=== PATIENT | female | born 1960 | race Caucasian/White ===

== ENCOUNTER 2017-05-01 20:17 | Inpatient (IN) | payer MEDICARE, OTHER ==
[~2017-05-01] VITALS: Ht 165.1 cm; Wt 73.6 kg
[~2017-05-01 20:17] MED LIST: CARI350T PO; CLON1TAB4 PO; ESTR1TAB17 PO; FEXO180T94 PO; LAMO100T PO; MORP30TA59 PO; PROG100C3 PO
[2017-05-01] MEDS ORDERED: ONDANSETRON HCL/PF 4 MG/2 ML VIAL IVP ONE (20:30)
[2017-05-01] MEDS ORDERED: PROPOFOL 20 ML IV ONE (20:30)
[2017-05-01] MEDS ORDERED: KETAMINE HCL (500MG/10ML) 50 MG/ML VIAL ONE (20:30)
[2017-05-01] MEDS ORDERED: PROPOFOL 200 MG/20 ML VIAL IV ONE ×2 (20:30→22:00)
[2017-05-01] MEDS ORDERED: KETAMINE HCL (500MG/10ML) 50 MG/ML VIAL IV ONE ×2 (20:30→22:00)
[2017-05-01] MEDS ORDERED: HYDROMORPHONE INJ 2 MG/ML DISP.SYRIN IV ONE (20:30)
[2017-05-01] MEDS ORDERED: IV NS 0.9% 500 ML BAG IV ONE ×2 (20:30→22:00)
[2017-05-01] MEDS ORDERED: ONDANSETRON HCL/PF 4 MG/2 ML VIAL ONE ×2 (20:30→21:31)
--- NOTE | 2017-05-01 20:30 | NUR ---
PT BIBRA FOR LEFT HIP PAIN. PT DENIES TRAUMA. "I BENT OVER AND IT POPPED OUT OF PLACE" PT AOX4 RR EVEN AND UNLABORED. NO SOB NOTED. NAD NOTED. NO NVD AT THIS TIME. PT GOWNED AND PLACED ON MONTIOR. PER RA STARTED IV ON RIGHT HAND 20G, PER RA GAVE MORPHINE 12 MG IVP.
[2017-05-01] MEDS ORDERED: HYDROMORPHONE 1 MG/1 ML DISP.SYRIN ONE ×3 (20:31→22:00)
--- NOTE | 2017-05-01 20:43 | NUR ---
XRAY AT BEDSIDE
--- NOTE | 2017-05-01 20:56 | NUR ---
DR. MUIR AND RT AT BEDSIDE FOR PROCEDURAL SEDATION FOR CLOSED REDUCTION OF LEFT HIP DISLOCATION.
--- NOTE | 2017-05-01 21:00 | NUR ---
VERBAL ORDERS PER DR. MUIR TO GIVE PROPOFO 20MG IVP. PT MEDICATED
--- NOTE | 2017-05-01 21:01 | NUR ---
VERBAL ORDERS PER DR. MUIR TO GIVE KETAMINE 20MG IVP. PT MEDICATED
--- NOTE | 2017-05-01 21:05 | NUR ---
VERBAL ORDERS PER DR. MUIR TO GIVE PROPOFO 20MG IVP. PT MEDICATED
--- NOTE | 2017-05-01 21:09 | NUR ---
VERBAL ORDERS PER DR. MUIR TO GIVE PROPOFO 20MG IVP. PT MEDICATED
--- NOTE | 2017-05-01 21:11 | NUR ---
Justine thomas in ED - 05/01/17 at 2202 by ISABELLA VERBAL ORDERS PER DR. MUIR TO GIVE PROPOFO 20MG IVP. PT MEDICATED
--- NOTE | 2017-05-01 21:11 | NUR ---
VERBAL ORDERS PER DR. MUIR TO GIVE KETAMINE 20MG IVP. PT MEDICATED
--- NOTE | 2017-05-01 21:12 | NUR ---
VERBAL ORDERS PER DR. MUIR TO GIVE PROPOFO 20MG IVP. PT MEDICATED
--- NOTE | 2017-05-01 21:15 | NUR ---
PER DR. MUIR UNABLE TO DO CLOSED REDUCTION OF LEFT HIP DISLOCATION
--- NOTE | 2017-05-01 21:19 | NUR ---
DR. PIEDRA SPEAKING TO DR. MUIR REGARDING ADMISSION
--- NOTE | 2017-05-01 21:24 | NUR ---
RT RT on stand by at bedside for conscious sedation.
[2017-05-01] MEDS ORDERED: HYDROMORPHONE 1 MG/1 ML DISP.SYRIN IV ONE ×2 (21:30→22:30)
[2017-05-01] MEDS ORDERED: ONDANSETRON HCL/PF 4 MG/2 ML VIAL IV ONE (21:30)
--- NOTE | 2017-05-01 21:30 | NUR ---
CALLED DR SKINNER'S LINE. 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 REFERRED TO PANEL.
--- NOTE | 2017-05-01 21:38 | NUR ---
DR. MUIR SPEAKING TO PT REGRADING POC
--- NOTE | 2017-05-01 21:46 | NUR ---
TERRANCE LOUIS AT BEDSIDE FOR EVAL.
--- NOTE | 2017-05-01 21:49 | NUR ---
URINE COLLECTED. CALLED LAB FOR WEBSITE ADMIN.
--- NOTE | 2017-05-01 21:49 | NUR ---
LAB AT BEDSIDE FOR BLOOD DRAW.
[2017-05-01 21:58] LABS: EOSINOPHILS # (AUTO) 0.1 /CMM (0.0-0.7); EOSINOPHILS % (AUTO) 1.4 % (0.0-6.0); HEMATOCRIT 28 % (33-45); HEMOGLOBIN 8.7 g/dL (11.5-14.8); LYMPHOCYTES # (AUTO) 0.7 /CMM (0.8-4.8); LYMPHOCYTES % (AUTO) 6.6 % (20.0-44.0); MEAN CORPUSCULAR HEMOGLOBIN 20 PG (26.0-33.0); MEAN CORPUSCULAR HGB CONC 31 g/dl (31.0-36.0); MEAN CORPUSCULAR VOLUME 62 fL (82-100); MONOCYTES # (AUTO) 0.3 /CMM (0.1-1.30); MONOCYTES % (AUTO) 2.9 % (2.0-12.0); NEUTROPHILS # (AUTO) 9.3 /CMM (1.8-8.9); NEUTROPHILS % (AUTO) 89.1 % (43.0-81.0); PLATELET COUNT (AUTO) 264 /CMM (150-450); RDW COEFFICIENT OF VARIATION 18.2 (11.5-15.0); RED BLOOD CELL COUNT(AUTO) 4.48 MIL/uL (4.0-5.2); WHITE BLOOD COUNT (AUTO) 10.4 K/uL (4.3-11.0)
--- NOTE | 2017-05-01 22:03 | NUR ---
VERBAL ORDERS PER DR. MUIR TO GIVE DILAUDID 1MG IVP. PT MEDICATED ORDERED.
--- NOTE | 2017-05-01 22:04 | NUR ---
DILAUDID 1MG GIVEN ON THE RHAND G20 PER DR MUIR'S VERBAL ORDER FOR PAIN ON THE LEFT HIP.
[2017-05-01 22:10] LABS: CREATININE 0.6 mg/dL (0.6-1.3); POTASSIUM 3.4 mmol/L (3.5-5.1)
--- NOTE | 2017-05-01 22:10 | NUR ---
PT ASSIGNED TO LA BED 317-2
[2017-05-01 22:15] LABS: CALCIUM, SERUM 7.9 mg/dL (8.5-10.1)
--- NOTE | 2017-05-01 22:16 | NUR ---
REPORT GIVEN TO HAYDEN MOMIN FOR DIANE/ BED 317-2
[2017-05-01 22:18] LABS: INR 0.9 (0.87-1.13); PROTHROMBIN TIME 9.6 SECS (9.5-12.7)
[2017-05-01] MEDS ORDERED: MAG HYDROX/AL HYDROX/SIMETH 30 ML UDC PO PRN (22:30)
[2017-05-01] MEDS ORDERED: ACETAMINOPHEN 325 MG TABLET PO PRN (22:30)
[2017-05-01] MEDS ORDERED: ONDANSETRON HCL/PF 4 MG/2 ML VIAL IVP PRN (22:30)
[2017-05-01] MEDS ORDERED: ZOLPIDEM TARTRATE 5 MG TABLET PO PRN (22:30)
[2017-05-01] MEDS ORDERED: Z GUARD REMEDY 2 OZ OINT TP PRN (22:30)
[2017-05-01] MEDS ORDERED: MAGNESIUM HYDROXIDE 30 ML UDC PO PRN (22:30)
[2017-05-01] MEDS ORDERED: IV NS 0.9% 1,000 ML IV PRN (22:30)
--- NOTE | 2017-05-01 22:33 | NUR ---
REMAINING PROPOFOL AND KETAMINE WASTED VIA PYXIS WITH RN AVIVA
[2017-05-01 22:40] VITALS: BP 121/68
--- NOTE | 2017-05-01 22:49 | NUR ---
PT TRASNFERED VIA GURNEY TO MS BED 317-2
[2017-05-01 22:50] VITALS: BP 121/68
--- NOTE | 2017-05-01 22:50 | NUR ---
RN NOTES RECEIVED PT FROM ER. PT IS AWAKE, A/OX 4. VERBALLY RESPONSIVE. ABLE TO MAKE NEEDS KNOWN. SON ART BEDSIDE. NO SOB OR DISTRESS NOTED. IV SITE ON RIGHT HAND LEAKING AT THIS TIME. INSERTED IV 20G ON LFA , WITH GOOD VENOUS RETURN. NO S/S OF INFILTRATION NOTED. F/C INSERTED, INTACT AND PATENT, DRAINING WITH CLEAR YELLOW URINE, NO HEMATURIA NOTED. AFEBRILE. BODY CHECK DONE. SKIN IS INTACT. ALL NEEDS ATTENDED AND MET. KEPT COMFORTABLE. PT ON NPO AFTER MIDNIGHT. SAFETY PRECAUTIONS OBSERVED. CALL LIGHT WITHIN REACH. WILL CONTINUE TO MONITOR.
[2017-05-01 23:12] LABS: EOSINOPHILS % (MANUAL) 1 % (0-4); LYMPHOCYTES % (MANUAL) 9 % (16-48); MONOCYTES % (MANUAL) 4 % (0-11.0); NEUTROPHILS % (MANUAL) 86 (42-76)
--- NOTE | 2017-05-01 23:58 | NUR ---
PLACED A CALL TO TERRANCE GALVAN REGARDING PT'S REQUEST FOR GABAPENTIN , RECEIVED A N.O NOTED AND CARRIED OUT. ALSO INFORMED COLE REGARDING PT WANTING TO HAVE ICE CHIPS UNTIL BEFORE PROCEDURE LATER AT 0930. EXPLAINED TO THE PT THE RISK , PT STILL WANTS ICE CHIPS. WILL CONT TO MONITOR.
[2017-05-02] MEDS ORDERED: GABAPENTIN 400 MG CAPSULE PO SCH
[2017-05-02] MEDS ORDERED: GABAPENTIN 300 MG CAPSULE ONE (00:06)
[2017-05-02] MEDS: GABAPENTIN 300 MG CAPSULE PO SCH ×3 (00:23→13:00)
[2017-05-02] MEDS ORDERED: GABAPENTIN 300 MG CAPSULE PO SCH ×2 (00:30)
[2017-05-02] MEDS ORDERED: HYDROMORPHONE INJ 2 MG/ML DISP.SYRIN ONE ×2 (01:01→05:11)
[2017-05-02] MEDS: HYDROMORPHONE INJ 2 MG/ML DISP.SYRIN IV PRN ×5 (01:31→17:07)
--- NOTE | 2017-05-02 02:23 | NUR ---
PT STABLE AT THIS TIME, ENDORSED TO HAYDEN LOREDO ACCORDINGLY FOR DIANE.
--- NOTE | 2017-05-02 02:24 | NUR ---
RN INITIAL NOTES: RECEIVED REPORT FROM LILIANE BLAKE, PT IN BED, SLEEPING, APPEARS CALM AND COMFORTABLE, NO FACIAL GRIMACE NOTED, ON ROOM AIR RESPIRATION EVEN AND UNLABORED, CONNECTED TO PULSE OXIMETRY SATING 93%. PT HAS CALDERÓN CATHETER IN PLACED, DRAINING INTO YELLOW COLORED URINE. PT HAS RIGHT AC IV ACCESS PATENT AND FLUSHING WELL, INFUSING WITH NS AT 100ML/HR. LEFT HIP PRECAUTION ESTABLISHED, IN THE NEED OF TURNING AND REPOSITIONING PT, WILL USE LOG ROLL TECHNIQUE, SAFETY PRECAUTIONS FOR FALL INITIATED, CALL LIGHT IN REACH, WILL CONTINUE TO MONITOR.
--- NOTE | 2017-05-02 03:00 | NUR ---
RN NOTES: PT REFUSED SCD, INFORMED PT IT WAS FOR RIGHT LEG, THE NON AFFECTED AREA, HOWEVER PT STATED NO AND THAT HER LEG IS CRAMPING AND DOESN'T NEED IT AT THIS TIME, EDUCATE PT REGARDING IMPORTANCE OF GOOD BLOOD CIRCULATION AND PREVENTION OF DVT BY MEANS OF USING DVT PUMPS, HENCE PT REFUSED
--- NOTE | 2017-05-02 05:15 | NUR ---
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
--- NOTE | 2017-05-02 05:21 | NUR ---
rn notes: pt requesting for some water to gurgle, swish and spit as she stated her mouth is so dry , explained to the pt that i will allow her to do it but make sure she's not going to drink the water, pt agree
[2017-05-02 06:19] LABS: BASOPHILS % (AUTO) 0.2 % (0.0-2.0); EOSINOPHILS # (AUTO) 0.1 /CMM (0.0-0.7); EOSINOPHILS % (AUTO) 2.1 % (0.0-6.0); HEMATOCRIT 25 % (33-45); HEMOGLOBIN 8.1 g/dL (11.5-14.8); LYMPHOCYTES # (AUTO) 1.3 /CMM (0.8-4.8); LYMPHOCYTES % (AUTO) 21.9 % (20.0-44.0); MEAN CORPUSCULAR HEMOGLOBIN 20 PG (26.0-33.0); MEAN CORPUSCULAR HGB CONC 32 g/dl (31.0-36.0); MEAN CORPUSCULAR VOLUME 62 fL (82-100); MONOCYTES # (AUTO) 0.6 /CMM (0.1-1.30); MONOCYTES % (AUTO) 9.8 % (2.0-12.0); NEUTROPHILS # (AUTO) 3.9 /CMM (1.8-8.9); PLATELET COUNT (AUTO) 227 /CMM (150-450); RDW COEFFICIENT OF VARIATION 18.7 (11.5-15.0); RED BLOOD CELL COUNT(AUTO) 4.06 MIL/uL (4.0-5.2); WHITE BLOOD COUNT (AUTO) 5.9 K/uL (4.3-11.0)
--- NOTE | 2017-05-02 06:41 | NUR ---
ms rn closing notes: pt in bed, awake, last pain medication given at 0515AM, right ac iv access remains patent and flushing well, infusing with ns at 100ml/hr. remains with tobin catheter in placed, vs remains stable, pt remains npo for closed reduction internal fixation today at 0930, consent obtained, checklist completed, vs remains stable, needs attended, safety precautions for fall remains engaged, call light in reach, will endorse to day rn for lew.
[2017-05-02 06:47] LABS: CALCIUM, SERUM 7.9 mg/dL (8.5-10.1); CREATININE 0.7 mg/dL (0.6-1.3); MAGNESIUM 2.2 mg/dL (1.8-2.4); PHOSPHORUS 3.2 mg/dL (2.5-4.9); POTASSIUM 3.6 mmol/L (3.5-5.1)
[2017-05-02 07:07] LABS: BAND % (MANUAL) 3 % (0.0-5.0); EOSINOPHILS % (MANUAL) 3 % (0-4); LYMPHOCYTES % (MANUAL) 20 % (16-48); MONOCYTES % (MANUAL) 5 % (0-11.0); NEUTROPHILS % (MANUAL) 69 (42-76)
--- NOTE | 2017-05-02 07:30 | NUR ---
MS/RN Patient received Patient received from sole molder. NPO at this time for closed reduction of left hip this morning at 0900. Consent forms signed and placed in front of chart. All needs attended, will conintue to monitor and ensure safety.
[2017-05-02 08:00] VITALS: BP 94/50
[2017-05-02] MEDS ORDERED: CALC500T52 PO (08:21)
[2017-05-02] MEDS ORDERED: METH500T6 PO (08:21)
[2017-05-02] MEDS ORDERED: OXYC-34 PO (08:21)
[2017-05-02] MEDS ORDERED: MULT-24 PO (08:21)
[2017-05-02] MEDS ORDERED: GABA-534 PO (08:21)
[2017-05-02] MEDS ORDERED: FAMOTIDINE/PF INJ 20 MG/2 ML VIAL IV SCH (09:00)
[2017-05-02] MEDS ORDERED: MIDAZOLAM HCL 2 MG/2ML VIAL ONE (09:05)
[2017-05-02] MEDS ORDERED: FENTANYL PF 100MCG/2ML AMPUL ONE (09:05)
--- NOTE | 2017-05-02 09:08 | NUR ---
MS/data acquisition technician Patient taken to operating room, chart with patient.
--- NOTE | 2017-05-02 10:21 | NUR ---
MS/RN Back in room Patient back in room following closed reduction of left hip. Vital signs upon return within normal range, although remains hypotensive which is normal for patient. Post op orders carried out, can now eat and drink. Call light within reach, son at bedside.
--- NOTE | 2017-05-02 11:50 | NUR ---
MS/loan examiner order Per Dr Higgins, patient may be discharged to home from ortho standpoint.
--- NOTE | 2017-05-02 11:57 | NUR ---
MS/RN S/B Mary Flores Seen by Mary Flores - patient stable to be discharged to home today, after ambulating and voiding post tobin catheter removal. No prescriptions needed.
[2017-05-02] MEDS ORDERED: ENOXAPARIN SODIUM 40 MG/0.4 ML DISP.SYRIN SQ SCH (12:00)
--- NOTE | 2017-05-02 12:15 | NUR ---
MS/RN Exit care Exit care prepared, chart copied.
--- NOTE | 2017-05-02 12:26 | NUR ---
MS/clubhouse manager manager pipeline at bedside to answer questions regarding coverage for hospital stay.
--- NOTE | 2017-05-02 13:47 | NUR ---
MS/RN Bravo removed Bravo catheter removed.
--- NOTE | 2017-05-02 15:09 | NUR ---
MS/RN Non administration Neurontin not administered as scheduled as patient receiving 2mg dilaudid at this time.
[2017-05-02 16:00] VITALS: BP 96/56
--- NOTE | 2017-05-02 17:24 | NUR ---
MS/hand nailer Patient discharged to home in stable condition. Education provided to patient regarding hip precautions, and the importance of following up with Dr Higgins in the office in 5-10 days. Stated that she would prefer to make own appointment as wanting to make sure that the follow up would be covered her insurance. Exit care completed and signed by patient. Heplock and name bands removed. All personal belongings accounted for on personal property list. Patient helped to dress, escorted to main door by PHOTOGRAVURE PRESS OPERATOR.
== END 2017-05-02 17:15 | disposition home or self-care (01) | DRG 561 ==
LOC: ER 20:20 → MED 22:42
PROVIDERS: ADMIT Nurse Practitioner Acute Care; ATTEND Nurse Practitioner Acute Care
PROC: 0SSBXZZ Reposition Left Hip Joint, External Approach (ICD-10-PCS; principal; 2017-05-01)
DX: T84.021A Dislocation of internal left hip prosthesis, initial encounter (principal); D50.9 Iron deficiency anemia, unspecified; F10.21 Alcohol dependence, in remission; M19.90 Unspecified osteoarthritis, unspecified site; Z85.828 Personal history of other malignant neoplasm of skin; Z96.643 Presence of artificial hip joint, bilateral; Z86.73 Personal history of transient ischemic attack (TIA), and cerebral infarction without residual deficits; Z82.49 Family history of ischemic heart disease and other diseases of the circulatory system; Z80.9 Family history of malignant neoplasm, unspecified; Y92.009 Unspecified place in unspecified non-institutional (private) residence as the place of occurrence of the external cause; Z80.8 Family history of malignant neoplasm of other organs or systems; Y79.2 Prosthetic and other implants, materials and accessory orthopedic devices associated with adverse incidents
CPT/HCPCS: 36415; 73020; 73502; 80048-TC; 83735-TC; 84100-TC; 85025-TC; 85730-TC; 86850-TC; 87081-TC; A4606; J1170; J2250; J2405; J2704; J3010; J3490; J7030; J7040; Z7610

== ENCOUNTER 2017-11-03 15:54 | Emergency (ER) | payer MEDICARE ==
[~2017-11-03] VITALS: Ht 167.6 cm; Wt 64.4 kg
[~2017-11-03 15:54] MED LIST changes: +CALC500T52 PO; -CARI350T PO; -CLON1TAB4 PO; +GABA-534 PO; -LAMO100T PO; +METH500T6 PO; -MORP30TA59 PO; +MULT-24 PO; +OXYC-133 PO; +PROG100C15 PO; -PROG100C3 PO
--- NOTE | 2017-11-03 16:00 | NUR ---
L HIP DISLOCATION S/P BENDING OVER "3RD TIME OF DISLOCATING LT HIP IN 18 MOS" MORPHINE 12MG GIVEN IN THE FIELD, NAD NOTED, VSS, RESP EVEN AND UNLABORED, WAITING FOR MD SIMON
[2017-11-03] MEDS ORDERED: ONDANSETRON HCL/PF 4 MG/2 ML VIAL ONE (16:08)
[2017-11-03] MEDS ORDERED: HYDROMORPHONE INJ 0.5 MG/0.5 ML SYRINGE ONE (16:08)
[2017-11-03] MEDS ORDERED: PROPOFOL 20 ML IV ONE ×2 (16:23→16:25)
[2017-11-03] MEDS ORDERED: ONDANSETRON HCL/PF 4 MG/2 ML VIAL IV ONE (17:00)
[2017-11-03] MEDS ORDERED: PROPOFOL 200 MG/20 ML VIAL IV ONE (17:00)
[2017-11-03] MEDS ORDERED: HYDROMORPHONE INJ 0.5 MG/0.5 ML SYRINGE IV ONE (17:00)
[2017-11-03 17:49] VITALS: BP 108/62
--- NOTE | 2017-11-03 17:50 | NUR ---
Patient discharged to home in stable condition. Written and verbal after care instructions given. Patient verbalizes understanding of instruction.IV removed. Catheter intact and site benign. Pressure and 4x4 applied to site. No bleeding noted. Prescription given.
== END 2017-11-03 17:51 | disposition home or self-care (01) ==
LOC: ER 15:58
DX: S73.005A Unspecified dislocation of left hip, initial encounter (principal); Z96.643 Presence of artificial hip joint, bilateral; Z98.82 Breast implant status; Z85.828 Personal history of other malignant neoplasm of skin; Z60.2 Problems related to living alone; X50.1XXA Overexertion from prolonged static or awkward postures, initial encounter; Y93.89 Activity, other specified; Y92.89 Other specified places as the place of occurrence of the external cause; Y99.8 Other external cause status
CPT/HCPCS: 73020; 73502; A4606; J7030; Z7610

== ENCOUNTER 2017-12-16 17:39 | Inpatient (IN) | payer MEDICARE ==
[~2017-12-16] VITALS: Ht 167.6 cm; Wt 71.2 kg
--- NOTE | 2017-12-16 17:47 | NUR ---
ALVIN 88 FROM PT CLINIC FOR LEFT HIP DISLOCATION WHILE STRETCHING. PATIENT RECEIVED 8MG MORPHINE IV EN ROUTE PERSONALIZED LIVING ASSISTANT. A/OX 4. BREATHING EVEN AND UNLABORED, BUT STILL IN SEVERE PAIN. VITALS STABLE. SAFETY AND COMFORT MEAUSRES IN PLACE, IV INTACT AND PATENT ON LEFT WRIST, 20G. MD AT BEDSIDE FOR EVAL.
[2017-12-16] MEDS ORDERED: ONDANSETRON HCL/PF 4 MG/2 ML VIAL ONE (17:56)
[2017-12-16] MEDS ORDERED: ONDANSETRON HCL/PF - ER 4 MG/2 ML VIAL IV ONE (18:00)
[2017-12-16] MEDS ORDERED: HYDROMORPHONE INJ 2 MG/ML DISP.SYRIN IV ONE ×2 (18:00→20:30)
[2017-12-16] MEDS ORDERED: IV NS 0.9% 1,000 ML BAG IV ONE ×2 (18:00)
[2017-12-16] MEDS ORDERED: MORPHINE SULFATE INJ 2 MG/ML DISP.SYRIN IV ONE (18:00)
[2017-12-16] MEDS ORDERED: MORPHINE SULFATE INJ 4 MG/ML DISP.SYRIN ONE (18:01)
[2017-12-16] MEDS ORDERED: HYDROMORPHONE INJ 2 MG/ML DISP.SYRIN ONE ×2 (18:10→20:16)
--- NOTE | 2017-12-16 18:14 | NUR ---
PATIENT STILL IN SEVERRE PAIN DESPITE RECEIVING MORPHINE RECENTLY. MD ORDERED DILAUDID 2MG, MEDICATED PER MD ORDERS.
[2017-12-16] MEDS ORDERED: PROPOFOL 20 ML IV ONE (18:19)
--- NOTE | 2017-12-16 18:26 | NUR ---
PT SIGNED CONSENT FOR REDUCTION OF HIP.
--- NOTE | 2017-12-16 19:09 | NUR ---
PATIENT STILL IN SEVERE PAIN, REQUESTING MORE PAIN MEDICATION. DR. LEONARDO MADE AWARE, STATING NO PAIN MEDICATION AT THIS TIME, D/T NEED FOR CONSCIOUS SEDATION. AWAITING BLOOD PRESSURE TO INCREASE IN ORDER TO SEDATE PATIENT FOR LEFT HIP REDUCTION. PATIENT VERY UPSET, MD AWARE, NO NEW ORDERS AT THIS TIME.
[2017-12-16] MEDS: PROPOFOL 1,000 MG/100 ML BOTTLE IV ONE ×2 (19:20→19:40)
--- NOTE | 2017-12-16 19:28 | NUR ---
DR LEONARDO ON THE PHONE WITH DR PIEDRA
--- NOTE | 2017-12-16 19:30 | NUR ---
REPORT GIVEN TO AVIVA BLAKE FOR DIANE.
--- NOTE | 2017-12-16 19:32 | NUR ---
RECEIVED ORDERS FROM DR LEONARDO FOR MODERATE SEDATION FOR CLOSE REDUCTION OF LEFT HIP DISLOCATION. RT BG CURIEL.
--- NOTE | 2017-12-16 19:37 | NUR ---
AT BEDSIDE FOR LEFT HIP REDUCTION.
--- NOTE | 2017-12-16 19:42 | NUR ---
CLOSED REDUCTION OF L HIP UNDER MODERATE SEDATION DONE BY DR. LEONARDO. RT AT BS. RECEIVED VERBAL ORDERS FOR PROPOFOL IVP- ORDERS CARRIED OUT FOLLOWS. 1940-30MG IVP 1942-30MG IVP 194-30MG IVP 1948-30MG IVP
[2017-12-16] MEDS ORDERED: NALOXONE HCL 0.4 MG/ML AMPUL ONE (19:54)
--- NOTE | 2017-12-16 19:55 | NUR ---
QUINTIN AT BS.
--- NOTE | 2017-12-16 19:57 | NUR ---
PT AWAKE, ALERT AND ORIENTED X 4. C/O OF PAIN. SATING AT 99% RA. WILL MONITOR.
--- NOTE | 2017-12-16 20:01 | NUR ---
REPAGED DR PIEDRA FOR DR LEONARDO
--- NOTE | 2017-12-16 20:19 | NUR ---
PT IS ASSIGNED TO [facility]#: 320-2
--- NOTE | 2017-12-16 20:28 | NUR ---
REPORT GIVEN TO MAMADOU BLAKE FOR DIANE.
[2017-12-16] MEDS ORDERED: MAGNESIUM HYDROXIDE 30 ML UDC PO PRN (20:30)
[2017-12-16] MEDS ORDERED: Z GUARD REMEDY 2 OZ OINT TP PRN (20:30)
[2017-12-16] MEDS ORDERED: ACETAMINOPHEN 325 MG TABLET PO PRN (20:30)
[2017-12-16] MEDS ORDERED: ONDANSETRON HCL/PF 4 MG/2 ML VIAL IVP PRN (20:30)
[2017-12-16] MEDS ORDERED: MAG HYDROX/AL HYDROX/SIMETH 30 ML UDC PO PRN (20:30)
[2017-12-16] MEDS ORDERED: HYDROCODONE/APAP 5/325MG 1 EACH TABLET PO PRN (20:30)
--- NOTE | 2017-12-16 20:41 | NUR ---
TRANSFERRED PATIENT TO MS BED, NO INCIDENT NOTED. PATIENT REMAINED AAOX4, NAD NOTED. VSS.
[2017-12-16 20:45] VITALS: BP 99/57
--- NOTE | 2017-12-16 20:45 | NUR ---
MS LIDDING MACHINE OPERATOR NOTES ADMITTED 57YO FEMALE PT WITH LT HIP DISLOCATION, ALERT, AWAKE, VERBALLY RESPONSIVE. ON ROOM AIR, RESPIRATIONS EVEN, UNLABORED, NO APPARENT DISTRESS NOTED.IV SITES LF HAND AND RT FA INTACT, BODY ASSESSMENT DONE, SKIN INTACT. PATENT. CALL LIGHT WITHIN REACH, ATTENDED ALL NEEDS. BED LOCKED IN LOWEST POSITION. WILL CONTINUE TO MONITOR ACCORDINGLY.
[2017-12-16 21:00] VITALS: BP 98/66
[2017-12-16] MEDS ORDERED: MORPHINE SULFATE INJ 4 MG/ML DISP.SYRIN IV PRN ×2 (21:00→22:00)
[2017-12-16] MEDS ORDERED: NALOXONE HCL 0.4 MG/ML AMPUL IV PRN (23:30)
[2017-12-17] VITALS (8 sets, daily range): BP systolic 73–96; BP diastolic 40–62
[2017-12-17] MEDS ORDERED: IV D5/0.45 NACL 1,000 ML IV PRN (00:01)
[2017-12-17] MEDS: GABAPENTIN 300 MG CAPSULE PO SCH ×4 (00:30→16:20)
[2017-12-17] MEDS: METHOCARBAMOL (500MG) 500 MG TABLET PO PRN ×2 (00:48→11:58)
[2017-12-17] MEDS: HYDROMORPHONE INJ 2 MG/ML DISP.SYRIN IV PRN ×3 (00:49→14:53)
[2017-12-17] MEDS ORDERED: ANESTHESIA TRAY IN PYXIS 1 EA TRAY MC ONE (06:34)
--- NOTE | 2017-12-17 06:50 | NUR ---
MS RN CLOSING NOTES PT PICKED UP BY SURGERY IN STABLE CONDITION, ON ROOM AIR, RESPIRATIONS EVEN, UNLABORED, NO APPARENT DISTRESS NOTED. ATTENDED ALL NEEDS. DENIES ANY DISCOMFORT AT THIS TIME.
[2017-12-17] MEDS ORDERED: MIDAZOLAM HCL 2 MG/2ML VIAL ONE (06:58)
[2017-12-17 07:10] LABS: BASOPHILS % (AUTO) 0.5 % (0.0-2.0); EOSINOPHILS % (AUTO) 2.6 % (0.0-6.0); HEMATOCRIT 32 % (33-45); HEMOGLOBIN 10.9 g/dL (11.5-14.8); MEAN CORPUSCULAR HGB CONC 34 g/dl (31.0-36.0); MEAN CORPUSCULAR VOLUME 81 fL (82-100); MONOCYTES # (AUTO) 0.3 /CMM (0.1-1.30); MONOCYTES % (AUTO) 8.4 % (2.0-12.0); NEUTROPHILS # (AUTO) 2.7 /CMM (1.8-8.9); NEUTROPHILS % (AUTO) 64.5 % (43.0-81.0); PLATELET COUNT (AUTO) 179 /CMM (150-450); RDW COEFFICIENT OF VARIATION 17.1 (11.5-15.0); RED BLOOD CELL COUNT(AUTO) 3.94 MIL/uL (4.0-5.2); WHITE BLOOD COUNT (AUTO) 4.2 K/uL (4.3-11.0)
[2017-12-17 07:31] LABS: CALCIUM, SERUM 7.7 mg/dL (8.5-10.1); CREATININE 0.8 mg/dL (0.6-1.3); MAGNESIUM 1.9 mg/dL (1.8-2.4); PHOSPHORUS 4.2 mg/dL (2.5-4.9); POTASSIUM 4.2 mmol/L (3.5-5.1)
--- NOTE | 2017-12-17 07:50 | NUR ---
REPORT RECEIVED FROM NIGHT RN. PT IS IN SURGERY. WILL MONITOR ON RETURN.
[2017-12-17 07:56] LABS: INR 0.96 (0.87-1.13)
[2017-12-17] MEDS ORDERED: oxyCODONE/APAP (5/325 MG) 1 UDTAB TABLET PO PRN (08:30)
--- NOTE | 2017-12-17 08:51 | NUR ---
PT RETURNED FROM SURGERY. VITALS CHECKED AND RECORDED, STABLE. ADMINISTERED PAIN MEDICATION PER ORDER. ORDERS ACKNOWLEDGED AND PLACED PER DR PIEDRA. DIET ORDERED FOR PATIENT. WILL MONITOR.
[2017-12-17] MEDS ORDERED: CALCIUM CARBONATE (1250) 500 MG TABLET PO SCH (09:00)
[2017-12-17] MEDS ORDERED: MULTIVITAMINS,THERAGRAN 1 UDTAB TABLET PO SCH (09:00)
[2017-12-17] MEDS ORDERED: PANTOPRAZOLE 40 MG VIAL IV SCH (09:00)
[2017-12-17] MEDS ORDERED: ESTRADIOL 1 MG TABLET PO SCH (09:00)
[2017-12-17] MEDS ORDERED: FEXOFENADINE HCL (60 MG) 60 MG TABLET PO PRN (09:00)
--- NOTE | 2017-12-17 17:18 | NUR ---
DISCHARGE INSTRUCTIONS GIVEN TO THE PATIENT AND ABLE TO UNDERSTAND. NO SOB OR DISTRESS NOTED AT THIS TIME. PATIENT REPORTS TOLERABLE PAIN. ALL PAPERWORK SIGNED AND BELONGINGS ACCOUNTED FOR. IV REMOVED AND PRESSURE APPLIED. NO BLEEDING NOTED AT THE SITE. PATIENT HAS FOLLOW UP APPOINTMENT WITH OUTPATIENT FOR HIP PROVIDED BY DR CHAU. PATIENT REFUSED BOTH FLU AND PNEUMONIA VACCINES ON DISCHARGE. PATIENT LEFT IN STABLE CONDITION, VIA WHEEL CHAIR. DISCHARGED HOME WITH SON RODOLFO VIA PRIVATE CAR.
[2017-12-18] MEDS ORDERED: PROGESTERONE,MICRONIZED 100 MG CAPSULE PO SCH (09:00)
[2017-12-19] MEDS ORDERED: PROGESTERONE,MICRONIZED 100 MG CAPSULE PO SCH (09:00)
== END 2017-12-17 17:59 | disposition home or self-care (01) | DRG 561 ==
LOC: ER 17:41 → MED 20:39
PROVIDERS: ADMIT Nurse Practitioner Acute Care; ATTEND Nurse Practitioner Acute Care
PROC: 0SWBXJZ Revision of Synthetic Substitute in Left Hip Joint, External Approach (ICD-10-PCS; principal; 2017-12-17 07:00)
DX: T84.021A Dislocation of internal left hip prosthesis, initial encounter (principal); I95.89 Other hypotension; Z85.828 Personal history of other malignant neoplasm of skin; Z96.643 Presence of artificial hip joint, bilateral; Y83.9 Surgical procedure, unspecified as the cause of abnormal reaction of the patient, or of later complication, without mention of misadventure at the time of the procedure; Y92.89 Other specified places as the place of occurrence of the external cause; Y79.2 Prosthetic and other implants, materials and accessory orthopedic devices associated with adverse incidents; Z98.82 Breast implant status; Z86.73 Personal history of transient ischemic attack (TIA), and cerebral infarction without residual deficits; Z82.49 Family history of ischemic heart disease and other diseases of the circulatory system; M19.90 Unspecified osteoarthritis, unspecified site; Z79.899 Other long term (current) drug therapy; D50.9 Iron deficiency anemia, unspecified; G89.4 Chronic pain syndrome
CPT/HCPCS: 36415; 72170-TC; 73020; 80048-TC; 80061-TC; 83735-TC; 84100-TC; 85025-TC; 85730-TC; 86850-TC; 87081-TC; A4606; C9113; J1170; J2250; J2270; J2310; J2405; J2704; J3490; J7030; L1830; Z7610

== ENCOUNTER 2018-09-19 21:11 | Emergency (ER) | payer MEDICARE ==
[~2018-09-19] VITALS: Ht 167.6 cm; Wt 59.9 kg
--- NOTE | 2018-09-19 21:51 | NUR ---
PT ALVIN FROM HOME COMPLAINING OF LEFT HIP PAIN. PT STATES SHE HAD BILATERAL HIP REPLACEMENT AND "THIS IS THE FIFTH TIME MY HIP POPPED OUT". PT APPEARS UNCOMFORTABLE. RESPIRATIONS EVEN AND UNLABORED. VITAL SIGNS STABLE. PT PLACED ON MONITOR, WILL CONTINUE TO MONITOR
[2018-09-19] MEDS ORDERED: FENTANYL PF 100MCG/2ML AMPUL ONE (21:53)
[2018-09-19] MEDS ORDERED: FENTANYL PF 100MCG/2ML AMPUL IV ONE (22:00)
[2018-09-19] MEDS ORDERED: IV NS 0.9% 1,000 ML BAG IV ONE (22:00)
[2018-09-19] MEDS ORDERED: PROPOFOL 20 ML IV ONE (22:56)
--- NOTE | 2018-09-19 23:09 | NUR ---
DR. VIZCAINO AND RT AT BEDSIDE FOR HIP REDUCTION
--- NOTE | 2018-09-19 23:23 | NUR ---
PT AAOX4. RESPIRATIONS EVEN AND UNLABORED. VITAL SIGNS STABLE. NO ACUTE DISTRESS NOTED AT THIS TIME. PT STILL ON CONTINUOUS SPECIAL EDUCATOR. WILL CONTINUE TO MONITOR
[2018-09-19 23:35] LABS: BASOPHILS % (AUTO) 0.3 % (0.0-2.0); EOSINOPHILS % (AUTO) 1.3 % (0.0-6.0); HEMATOCRIT 33 % (33-45); LYMPHOCYTES # (AUTO) 0.4 /CMM (0.8-4.8); LYMPHOCYTES % (AUTO) 6.5 % (20.0-44.0); MEAN CORPUSCULAR HGB CONC 33 g/dl (31.0-36.0); MEAN CORPUSCULAR VOLUME 83 fL (82-100); MONOCYTES # (AUTO) 0.5 /CMM (0.1-1.30); MONOCYTES % (AUTO) 6.9 % (2.0-12.0); NEUTROPHILS # (AUTO) 5.6 /CMM (1.8-8.9); PLATELET COUNT (AUTO) 244 /CMM (150-450); RED BLOOD CELL COUNT(AUTO) 3.96 MIL/uL (4.0-5.2); WHITE BLOOD COUNT (AUTO) 6.6 K/uL (4.3-11.0)
[2018-09-19 23:53] LABS: CALCIUM, SERUM 8.1 mg/dL (8.5-10.1); CREATININE 0.8 mg/dL (0.6-1.3); POTASSIUM 3.6 mmol/L (3.5-5.1)
[2018-09-19] MEDS ORDERED: HYDROMORPHONE INJ 2 MG/ML DISP.SYRIN ONE (23:59)
[2018-09-20] MEDS ORDERED: HYDROMORPHONE 1 MG/1 ML DISP.SYRIN IV ONE
--- NOTE | 2018-09-20 00:15 | NUR ---
RADIOLOGY AT BEDSIDE
--- NOTE | 2018-09-20 01:36 | NUR ---
[facility] [phone], ACCEPTED AT [facility] BY DR. SHELDON, AWAITING BED INFO.
[2018-09-20 01:59] VITALS: BP 103/63
--- NOTE | 2018-09-20 02:11 | NUR ---
PT TO BE TRANSFERRED TO [facility] BED 1509 NUMBER FOR REPORT [phone] ETA 30MIN FOR TRANSPORTATION
--- NOTE | 2018-09-20 02:18 | NUR ---
GAVE REPORT TO SARAH BLAKE FROM [facility] FOR DIANE
[2018-09-20] MEDS ORDERED: PROPOFOL 200 MG/20 ML VIAL IV ONE (02:30)
--- NOTE | 2018-09-20 03:23 | NUR ---
GAVE REPORT TO MAYLIN FOR TRANSPORTATION DIANE
== END 2018-09-20 03:26 | disposition short-term general hospital (02) ==
LOC: ER 21:12
DX: S73.005A Unspecified dislocation of left hip, initial encounter (principal); I95.9 Hypotension, unspecified; R94.31 Abnormal electrocardiogram [ECG] [EKG]; Z41.1 Encounter for cosmetic surgery; Z96.642 Presence of left artificial hip joint; Z60.2 Problems related to living alone; X50.1XXA Overexertion from prolonged static or awkward postures, initial encounter; Y93.89 Activity, other specified; Y92.89 Other specified places as the place of occurrence of the external cause; Y99.8 Other external cause status
CPT/HCPCS: 36415; 71045-TC; 73502; 80048-TC; 85025-TC; 85730-TC; 87081-TC; G0500; J1170; J2704; J3010; J7030

== ENCOUNTER 2023-12-26 16:23 | Inpatient (IN) | payer MEDICARE ==
[~2023-12-26] VITALS: Ht 167.6 cm; Wt 62.1 kg
[2023-12-26] MEDS ORDERED: PROPOFOL 20 ML IV ONE (16:45)
[2023-12-26] MEDS: KETAMINE HCL(200MG/20ML) 10 MG/ML VIAL IV ONE (17:17)
[2023-12-26] MEDS: PROPOFOL 200 MG/20 ML VIAL IV ONE (17:49)
[2023-12-26] MEDS ORDERED: TRAM50TA2 PO (18:20)
[2023-12-26] MEDS ORDERED: TIZA-180 PO (18:20)
[2023-12-26] MEDS ORDERED: HYDROMORPHONE 1 MG/1 ML DISP.SYRIN ONE ×2 (18:28→20:27)
[2023-12-26] MEDS: HYDROMORPHONE 1 MG/1 ML DISP.SYRIN IV ONE (18:31)
[2023-12-26 19:29] VITALS: O2SAT 99
[2023-12-26 19:38] LABS: BASOPHILS # (AUTO) 0.1 K/uL (0.0-0.2); BASOPHILS % (AUTO) 0.5 % (0.0-2.0); EOSINOPHILS # (AUTO) 0.1 K/uL (0.0-0.7); EOSINOPHILS % (AUTO) 0.5 % (0.0-6.0); HEMATOCRIT 36 % (33-45); HEMOGLOBIN 11.3 g/dL (11.5-14.8); LYMPHOCYTES # (AUTO) 0.8 K/uL (0.8-4.8); LYMPHOCYTES % (AUTO) 6.3 % (20.0-44.0); MEAN CORPUSCULAR HEMOGLOBIN 23 PG (26.0-33.0); MEAN CORPUSCULAR HGB CONC 32 g/dl (31.0-36.0); MEAN CORPUSCULAR VOLUME 74 fL (82-100); MONOCYTES # (AUTO) 0.6 K/uL (0.1-1.30); NEUTROPHILS # (AUTO) 10.9 K/uL (1.8-8.9); NEUTROPHILS % (AUTO) 87.7 % (43.0-81.0); PLATELET COUNT (AUTO) 323 K/uL (150-450); RED BLOOD CELL COUNT(AUTO) 4.87 MIL/uL (4.0-5.2); RED CELL DISTRIBUTION WIDTH 18.9 % (11.5-15.0); WHITE BLOOD COUNT (AUTO) 12.4 K/uL (4.3-11.0)
[2023-12-26 19:52] LABS: CALCIUM, SERUM 8.5 mg/dL (8.5-10.1); CREATININE 0.9 mg/dL (0.6-1.3); POTASSIUM 3.7 mmol/L (3.5-5.1)
[2023-12-26 19:55] LABS: INR 1.01 (0.91-1.10); PARTIAL THROMBOPLASTIN TIME 23.3 SEC (24.3-34.3); PROTHROMBIN TIME 10.7 SECS (9.2-11.1)
[2023-12-26] MEDS: HYDROMORPHONE 1 MG/1 ML DISP.SYRIN IV PRN (20:35)
[2023-12-26 20:45] VITALS: BP 120/98; TEMP 98.2; O2SAT 98
[2023-12-26] MEDS ORDERED: ACETAMINOPHEN 325 MG TABLET PO PRN (21:00)
[2023-12-26] MEDS ORDERED: ONDANSETRON HCL/PF 4 MG/2 ML VIAL IVP PRN (21:00)
[2023-12-26] MEDS ORDERED: Z GUARD REMEDY 4 OZ OINT TP PRN (21:00)
[2023-12-26] MEDS ORDERED: MAGNESIUM HYDROXIDE 30 ML UDC PO PRN (21:00)
[2023-12-26] MEDS ORDERED: MORPHINE SULFATE INJ 4 MG/ML DISP.SYRIN IV PRN (21:00)
[2023-12-26] MEDS ORDERED: HYDROMORPHONE 1 MG/1 ML DISP.SYRIN IV PRN (22:00)
[2023-12-26 22:19] LABS: ANISOCYTOSIS 1+; BASOPHILS % (MANUAL) 1 % (0.0-2.0); LYMPHOCYTES % (MANUAL) 7 % (16-48); MONOCYTES % (MANUAL) 5 % (0-11.0); NEUTROPHILS % (MANUAL) 87 (42-76); OVALOCYTES 1+; PLATELET ESTIMATE ADEQUATE
[2023-12-27] MEDS: IV D5/0.45 NACL 1,000 ML IV PRN (00:18)
[2023-12-27] MEDS: HYDROMORPHONE 1 MG/1 ML DISP.SYRIN IV PRN (00:34)
[2023-12-27 04:55] VITALS: BP 115/58
[2023-12-27 07:07] LABS: BASOPHILS % (AUTO) 0.6 % (0.0-2.0); EOSINOPHILS # (AUTO) 0.1 K/uL (0.0-0.7); EOSINOPHILS % (AUTO) 1.4 % (0.0-6.0); HEMATOCRIT 32 % (33-45); HEMOGLOBIN 10.4 g/dL (11.5-14.8); LYMPHOCYTES # (AUTO) 1.1 K/uL (0.8-4.8); LYMPHOCYTES % (AUTO) 17.1 % (20.0-44.0); MEAN CORPUSCULAR HEMOGLOBIN 24 PG (26.0-33.0); MEAN CORPUSCULAR HGB CONC 33 g/dl (31.0-36.0); MEAN CORPUSCULAR VOLUME 73 fL (82-100); MONOCYTES # (AUTO) 0.7 K/uL (0.1-1.30); MONOCYTES % (AUTO) 10.7 % (2.0-12.0); NEUTROPHILS # (AUTO) 4.4 K/uL (1.8-8.9); NEUTROPHILS % (AUTO) 70.2 % (43.0-81.0); PLATELET COUNT (AUTO) 262 K/uL (150-450); RED BLOOD CELL COUNT(AUTO) 4.36 MIL/uL (4.0-5.2); RED CELL DISTRIBUTION WIDTH 18.6 % (11.5-15.0); WHITE BLOOD COUNT (AUTO) 6.3 K/uL (4.3-11.0)
[2023-12-27 07:31] LABS: CALCIUM, SERUM 8.1 mg/dL (8.5-10.1); CREATININE 0.7 mg/dL (0.6-1.3); MAGNESIUM 1.8 mg/dL (1.8-2.4); PHOSPHORUS 4.2 mg/dL (2.5-4.9); POTASSIUM 3.4 mmol/L (3.5-5.1)
[2023-12-27 07:57] LABS: THYROID STIMULATING HORMONE 2.477 uIU/mL (0.358-3.74)
[2023-12-27 08:17] LABS: APPEARANCE,URINE CLEAR (CLEAR); BILIRUBIN,URINE NEGATIVE (NEGATIVE); BLOOD, URINE NEGATIVE Ery/uL (NEGATIVE); COLOR,URINE YELLOW (YELLOW); KETONES,URINE NEGATIVE (NEGATIVE); LEUKOCYTE ESTERASE ,URINE TRACE (NEGATIVE); NITRITE, URINE NEGATIVE (NEGATIVE); PROTEIN,URINE NEGATIVE (NEGATIVE); UGLUCOSE NEGATIVE (NEGATIVE); UROBILINOGEN,URINE 0.2 EU/dL (0.2)
[2023-12-27] MEDS: PANTOPRAZOLE 40 MG TABLET.DR PO SCH (08:21)
[2023-12-27] MEDS: POTASSIUM CL. PREMIX PERIPHER. 50 ML IV SCH (10:00)
[2023-12-27] MEDS ORDERED: POTASSIUM CHLORIDE 20 MEQ TAB.PRT.SR PO ONE (10:00)
[2023-12-27 10:58] LABS: ADD URINE CULTURE NO; BACTERIA,URINE None seen /HPF (None Seen); RBC,URINE NONE SEEN /HPF (0-2); SQUAMOUS EPITHELIAL CELL,UR 0-2 /HPF (None Seen)
[2023-12-27] MEDS ORDERED: MORPHINE SULFATE INJ 2 MG/ML DISP.SYRIN IV PRN (15:30)
[2023-12-27 16:00] VITALS: BP 104/57; TEMP 98.6; O2SAT 97
[2023-12-27] MEDS: IV D5/0.45 NACL W/20 MEQ KCL 1L IV SCH (16:59)
[2023-12-27] MEDS: HYDROCODONE/APAP 10/325MG TABLET PO PRN (18:43)
[2023-12-27 20:33] VITALS: BP 123/63; TEMP 99; O2SAT 96
[2023-12-28 08:00] VITALS: BP 107/64; TEMP 98.8; O2SAT 100
== END 2023-12-28 14:19 | disposition home or self-care (01) | DRG 561 ==
LOC: ER 16:23 → MED 20:21
PROVIDERS: ADMIT Nurse Practitioner Family; ATTEND Internal Medicine
PROC: 0SWRXJZ Revision of Synthetic Substitute in Right Hip Joint, Femoral Surface, External Approach (ICD-10-PCS; principal; 2023-12-27)
DX: T84.020A Dislocation of internal right hip prosthesis, initial encounter (principal); Y79.2 Prosthetic and other implants, materials and accessory orthopedic devices associated with adverse incidents; D64.9 Anemia, unspecified; Z53.20 Procedure and treatment not carried out because of patient's decision for unspecified reasons; Z98.82 Breast implant status; Z96.643 Presence of artificial hip joint, bilateral; D72.829 Elevated white blood cell count, unspecified; F43.9 Reaction to severe stress, unspecified; F17.290 Nicotine dependence, other tobacco product, uncomplicated; Z80.9 Family history of malignant neoplasm, unspecified; Z82.49 Family history of ischemic heart disease and other diseases of the circulatory system; Y92.009 Unspecified place in unspecified non-institutional (private) residence as the place of occurrence of the external cause; Z88.7 Allergy status to serum and vaccine; Z86.79 Personal history of other diseases of the circulatory system
CPT/HCPCS: 36415; 71045-TC; 73502; 80048-TC; 81001; 82728-TC; 83540-TC; 83735-TC; 84100-TC; 84443-TC; 85025-TC; 85730-TC; A4223; G0378; G0500; J1100; J1170; J2704; J2765; J3480; J3490; J7030